=== PATIENT | male | born 1960 | race Caucasian/White ===

== ENCOUNTER 2018-01-28 15:19 | Inpatient (IN) | payer MEDICARE ==
--- NOTE | 2018-01-28 16:09 | CT ---
CT HEAD WITHOUT CONTRAST: Date: 01/28/18 Multiple axial tomograms obtained through the head without IV enhancement. INDICATION: Mental status change. FINDINGS: Ventricles have normal size and position. There is no evidence of intracranial mass or hemorrhage. No evidence of acute infarct. There is asymmetric opacification of the left mastoid air cells. There is also complete opacification of the left maxillary sinus. IMPRESSION: 1. No acute intracranial abnormality. 2. Opacification of left maxillary sinus. There is a more dense rounded area posteriorly measuring 1 .5 cm, which may represent a mucus retention cyst coexisting with diffuse mucus edema. 3. There is also diffuse mucosal edema opacifying the left mastoid and petrous air cells. POS: [facility]
--- NOTE | 2018-01-28 16:17 | RAD ---
2 VIEW CHEST: Date: 01/28/18 HISTORY: Dyspnea. No comparison. FINDINGS: Mild elevation of left hemidiaphragm. There is mild cardiomegaly. There is vascular engorgement and e vidence of mild congestion. The lateral view is suboptimal due to motion artifact. I cannot exclude s mall effusions. IMPRESSION: Suboptimal exam. Evidence of mild vascular congestion. POS: [facility]
[2018-01-28] MEDS ORDERED: Dexamethasone 4 mg/ml Vial ONE (16:18)
[2018-01-28] MEDS ORDERED: Magnesium Sulfate 2 GM/100 ML BAG ONE (16:18)
[2018-01-28] MEDS ORDERED: Albuterol Sulfate 2.5 mg/3 ml Neb ONE (16:35)
[2018-01-28 16:37] LABS: #Lymphocytes 0.9 thou/uL (1.20-3.40); #Monocytes 0.2 thou/uL (0.11-0.59); #Neutrophils 5.1 thou/uL (1.40-6.50); %Basophils 0.2 % (0.0-1.0); %Lymphocytes 14.7 % (21.0-51.0); %Monocytes 3.4 % (0.0-10.0); %Neutrophils 81.7 % (42.0-75.0); Hemoglobin 16.6 g/dL (14.0-18.0); Mean Corpuscular HGB CONC 32.6 g/dL (32.0-36.0); Mean Corpuscular Hemoglobin 26.2 pg (27.0-31.0); Mean Corpuscular Volume 80.4 fL (78.0-98.0); Mean Platelet Volume 9.6 fL (7.4-10.4); Platelet Count 97 thou/uL (130-400); RBC Distribution Width 15.3 % (11.5-14.5); Red Blood Cell (RBC) Count 6.35 mill/uL (4.70-6.10); White Blood Cell (WBC) Count 6.3 thou/uL (4.8-10.8)
[2018-01-28 16:48] LABS: ALT (SGPT) 57 U/L (8-55); AST (SGOT) 190 U/L (5-34); Albumin 3.9 g/dL (3.5-5.0); Alkaline Phosphatase 37 U/L (40-150); Anion Gap 16 mmol/L (10-20); BUN (Urea Nitrogen) 38 mg/dL (8.4-25.7); Bilirubin, Total 0.6 mg/dL (0.2-1.2); Calc. Creatinine Clearance 0 mL/min (70-130); Calcium 9.2 mg/dL (7.8-10.44); Carbon Dioxide 15 mmol/L (22-29); Chloride 100 mmol/L (98-107); Estimated GFR-MDRD 37; Globulin 3.5 g/dL (2.4-3.5); Glucose 159 mg/dL (70-105); Lipase 236 U/L (8-78); Potassium 3.4 mmol/L (3.5-5.1); Protein, Total 7.4 g/dL (6.0-8.3); Sodium 128 mmol/L (136-145)
[2018-01-28 16:50] LABS: Band 21 % (5-11); Lymphocytes 8 % (21-51); MDiff Complete? YES; Monocytes 2 % (0-10); Neutrophil 66 % (42-75); PLT Morphology Comment Appears Decreased; RBC Morphology Normal; Reactive Lymphocytes 3 % (0-10); Vacuoles SLIGHT
[2018-01-28 16:51] LABS: Troponin I 0.094 ng/mL (< 0.028)
[2018-01-28 16:57] LABS: CKMB 18.2 ng/mL (0-6.6)
[2018-01-28 17:01] LABS: CK (CPK) 7834 U/L (30-200)
[2018-01-28] MEDS ORDERED: Acetaminophen 500 MG TAB ONE (17:49)
[2018-01-28 19:53] LABS: Troponin I 0.104 ng/mL (< 0.028)
[2018-01-28] MEDS ORDERED: Sodium Chloride 0.9% 1,000 ML IV SCH (22:22)
[2018-01-28] MEDS ORDERED: Dextrose 5% in Water 1,000 ML IV PRN (22:48)
[2018-01-28] MEDS ORDERED: Ondansetron ODT 4 MG TAB PO PRN (22:48)
[2018-01-28] MEDS ORDERED: HYDROcodone/Acetaminophen 5/325 mg Tablet PO PRN ×2 (22:48)
[2018-01-28] MEDS ORDERED: Acetaminophen 325 MG TAB PO PRN (22:48)
[2018-01-28] MEDS ORDERED: Dextrose 50% Abboject 50 ML SYRINGE SLOW IVP PRN (22:48)
[2018-01-28] MEDS ORDERED: Ondansetron HCl/PF 4 MG/2 ML Vial IVP PRN (22:48)
[2018-01-28] MEDS ORDERED: Albuterol Sulfate 1.25 MG/3 ML NEB NEB PRN (22:54)
[2018-01-28] MEDS: Sodium Chloride 0.9% 1,000 ML IV SCH (23:49)
[2018-01-28] MEDS: Vancomycin HCl 1.5 GM in Sodium Chloride 0.9% 250 ML 300 ML IVPB SCH (23:49)
--- NOTE | 2018-01-29 00:41 | HP ---
DATE OF ADMISSION: 01/28/2018 PRIMARY CARE PHYSICIAN: Dr. Claire Cruz. TIME OF SERVICE: 2229. CHIEF COMPLAINT: Altered mental status, wheezing, and slurred speech. HISTORY OF PRESENT ILLNESS: Mr. Cheatham is a 57-year-old gentleman with history of mental retardation /autism, who is normally fairly independent. He was brought to the emergency department today for 1- day history of slurred speech starting yesterday morning. He speaks normally and is independent with his own activities of daily living. He told his caregiver, he went to come to the hospital today be cause someone was "trying to impersonate me." He woke up yesterday with some slurred speech, dizziness, and a slight fever. He remained fairly sta ble today and continued through today, so he was brought in for evaluation. In the ER, per their notes, he was a GCS of 0. He had normal vital signs on presentation. His lab e valuation showed acute kidney injury, he was tachycardic at 102, wheezing, and by the time he left th e ER, blood pressure dropped into the 80s-90 systolic. He did not have a sepsis activation. He got 2 liters of normal saline, Decadron, and nebulizer treatments in the ER. On arrival to the floor, blood pressure was noted to be in the 60s systolic. He received IV fluids a nd put in Trendelenburg. Repeat blood pressures over time have improved to the 90 systolic. Patient is somnolent, difficult to arouse. Here he awakes and looks at you, but does not really respond or talk or communicate. Patient being transferred to the [facility] for closer monitoring. PAST MEDICAL HISTORY: 1. Autism. 2. Diabetes mellitus, type 2, diet controlled. 3. Essential hypertension. 4. Anxiety. 5. Depression. PAST SURGICAL HISTORY: None. HOME MEDICATIONS: 1. 600 mg p.o. daily. 2. Atenolol 50 mg daily. 3. Gemfibrozil 600 mg daily. 4. Pravastatin 40 mg p.o. at bedtime. 5. Probiotic daily. ALLERGIES: NKDA. FAMILY HISTORY: Negative for clotting or bleeding disorder, no immune dysfunction. He has a caregiv er and guardian. SOCIAL HISTORY: Negative for habits x3. REVIEW OF SYSTEMS: Not obtainable due to somnolence. PHYSICAL EXAMINATION: VITAL SIGNS: Temperature on arrival to the ER 99.2, pulse 102, blood pressure 120/83, respiration ra te 24, satting 96% on room air. Current vitals on arrival to floor, temperature 97.4, pulse 73, bloo d pressure was 90/60, respiratory rate 22, satting 95% on room air. GENERAL: He is sleeping. He opens his eyes to verbal stimuli, but does not respond. He is snoring very loudly and with occasional short periods of apnea. HEENT: Normocephalic, atraumatic. Pupils equal, round, react to light bilaterally. Mucous membrane s are dry. He has no visible lesions or thrush. NECK: Supple. He has no lymphadenopathy, JVD, or thyromegaly. He has normal carotid upstroke. The re are no bruits. LUNGS: Clear. No wheezes, no rales or rhonchi. CARDIOVASCULAR: Normal cardiac and regular. Normal S1, S2. No S3 or S4. I do not appreciate murmu rs. ABDOMEN: Soft. It is nontender, nondistended. He has good bowel sounds. SKIN: Cool and clammy. His capillary refill is around 3-4 seconds. EXTREMITIES: He has got trace pedal edema. MUSCULOSKELETAL: Normal to inspection. Large joints appear normal. There are no evidence of inflam mation or palpable effusions. NEUROLOGIC: Not testable. Cranial nerves appear to be intact, but cannot follow commands currently. LABORATORY DATA: Sodium 128, potassium 3.4, chloride 100, bicarb 15, BUN 38, creatinine 1.89, glucos e 159, calcium 9.2. No lactate was done. Liver functions are within normal limits except for an ALT of 57. CBC showed a white count of 6.3, but he did have a 21% bandemia, 66% granulocytes, hemoglobin 16.6, h ematocrit 51.0, and platelet count is 97,000. CK-MB was elevated 18.2, total CK of 7834. Troponin I was 0.094 with a repeat of 0.104. BNP is normal at 24.2 and lipase was slightly elevated at 236. CT scan of the brain showed left maxillary sinusitis and some left mastoiditis, mastoid fluid, otherw ise negative. Chest x-ray showed mild vascular congestion. ASSESSMENT AND PLAN: 1. Metabolic encephalopathy. 2. Severe sepsis. Patient does have tachycardia, hypertension, bandemia, and acute kidney injury. We will check a lactic acid level. He only received 2 liters of fluid per his weight of 136 kilos, a lmost 4 liters of 36 mL per kilo. We will give another liter of fluid and continue IV fluids and inc reased at 125 mL per hour. 3. Diabetes mellitus, type 2, n.p.o. at present. Sliding scale Humalog. 4. Hypertension, meds on hold currently hypotensive. He has a poor blood pressure support with flui ds. 5. History of autism. 6. Rhabdomyolysis. CK of 7834. We will hydrate and recheck in the morning.
[2018-01-29] MEDS ORDERED: Tamsulosin HCl 0.4 MG CAP PO SCH (01:15)
[2018-01-29 03:11] LABS: Bilirubin Negative (Negative); Blood, Urine Large (Negative); Clarity CLOUDY (Clear); Glucose, Urine (Dipstick) 250 mg/dL (Negative); Leukocyte Negative (Negative); Nitrite Negative (Negative); Protein, Urine (Dipstick) 100 mg/dL (Neg-Trace); Specific Gravity, Urine 1.027 (1.002-1.036); Urobilinogen 0.2 mg/dL (0.2-1.0); pH, Urine 5.5 (5.0-9.0)
[2018-01-29 03:12] LABS: Bacteria/HPF None Seen HPF (None Seen)
[2018-01-29 03:18] LABS: Hyaline Casts/LPF 0-3 HYALINE CAST LPF (0-3 Hyaline); Other Casts/LPF None Seen LPF (0-3 Hyaline); Oval Fat Bodies/HPF None Seen HPF (None Seen); Pathc Cast-AUWi Flag 13.37 (0-2.49); Renal Epithelial 0-3 HPF (0-3); Sperm/HPF None Seen HPF (None Seen); Transitional Epithelial NONE SEEN HPF (0-3); Trichomonas/HPF None Seen HPF (None Seen); Yeast-All Forms None Seen HPF (None Seen)
[2018-01-29] MEDS ORDERED: Dexamethasone 4 mg/ml Vial SLOW IVP SCH (04:00)
[2018-01-29 04:01] LABS: Lactic Acid 1.9 mmol/L (0.5-2.2)
[2018-01-29 04:09] LABS: ALT (SGPT) 50 U/L (8-55); AST (SGOT) 149 U/L (5-34); Albumin 3.3 g/dL (3.5-5.0); Alkaline Phosphatase 30 U/L (40-150); Anion Gap 14 mmol/L (10-20); BUN (Urea Nitrogen) 32 mg/dL (8.4-25.7); Bilirubin, Total 0.4 mg/dL (0.2-1.2); Calc. Creatinine Clearance 122 mL/min (70-130); Calcium 7.8 mg/dL (7.8-10.44); Carbon Dioxide 16 mmol/L (22-29); Chloride 106 mmol/L (98-107); Estimated GFR-MDRD 59; Globulin 2.7 g/dL (2.4-3.5); Glucose 262 mg/dL (70-105); Potassium 3.7 mmol/L (3.5-5.1); Sodium 132 mmol/L (136-145)
[2018-01-29 04:43] LABS: Band 18 % (5-11); Hemoglobin 14.2 g/dL (14.0-18.0); Lymphocytes 10 % (21-51); MDiff Complete? YES; Mean Corpuscular HGB CONC 33.6 g/dL (32.0-36.0); Mean Corpuscular Hemoglobin 27.4 pg (27.0-31.0); Mean Corpuscular Volume 81.5 fL (78.0-98.0); Mean Platelet Volume 9.4 fL (7.4-10.4); Monocytes 1 % (0-10); Neutrophil 71 % (42-75); PLT Morphology Comment Appears Decreased; Platelet Count 79 thou/uL (130-400); RBC Distribution Width 15.2 % (11.5-14.5); Red Blood Cell (RBC) Count 5.19 mill/uL (4.70-6.10); White Blood Cell (WBC) Count 5.4 thou/uL (4.8-10.8)
[2018-01-29] MEDS: HumaLOG 300 UNITS/3 ML VIAL SC PRN ×4 (06:38→22:01)
[2018-01-29] MEDS ORDERED: Famotidine/PF 20 mg/2ml Vial SLOW IVP SCH (09:00)
[2018-01-29] MEDS: Sodium Chloride 0.9% 1,000 ML IV SCH ×2 (10:05→12:43)
[2018-01-29] MEDS: Cefepime 2 GM in Sodium Chloride 0.9% 100 ML IVPB SCH ×2 (10:06→21:59)
--- NOTE | 2018-01-29 13:40 | CON ---
DATE OF CONSULTATION: 01/29/2018 HISTORY OF PRESENT ILLNESS: Mr. Cheatham is a pleasant gentleman who has a learning disability and autism. He apparently lives fairly well independently. He does have some assistance. He presented with confusion. This apparently has cleared. I was consulted because of his presence in the Intermediate Care Unit. Apparently, he was hypotensive in the emergency department and after he was admitted. He has been volume resuscitated. PAST MEDICAL HISTORY: Remarkable for diabetes, hypertension, anxiety, depression, and autism. SOCIAL HISTORY: He is a nonsmoker, nondrinker. FAMILY HISTORY: Negative for clotting disorders. Negative for lung disease at an early age. Review of Systems: 10 point review of systems otherwise negative ALLERGIES: He has no reported drug allergies. PHYSICAL EXAMINATION: VITAL SIGNS: He is afebrile, heart rate 74, respiratory rate 20, oximetry is 100%, blood pressure 125/80. HEENT: Pupils are equal. Sclerae is anicteric. GENERAL: He answers questions quickly. He knew he was somewhere in [place]. HEAD AND NECK: Otherwise unremarkable. LUNGS: Clear. HEART: Regular rhythm. S1 and S2 are normal. ABDOMEN: Soft and nontender. EXTREMITIES: No clubbing, cyanosis, or edema. NEUROLOGIC: Grossly nonfocal. LABORATORY AND X-RAY FINDINGS: Chest x-ray showed no alveolar infiltrates. He has a poor inspiratory effort, likely because of his confusion. Head CT showed no structural abnormalities other than some findings suggestive of sinusitis and possible mastoiditis. White count 5.4, hemoglobin 14.2, platelets 79,000. He had 21% bands yesterday , he has 18 today. Cultures of the blood are negative so far. Sodium 132, potassium 3.7, chloride 106, bicarbonate 16, BUN 320, creatinine 1.27, glucose 262, AST was 149, ALT 50, alkaline phosphatase 30. CPK was 7, 834.. IMPRESSION: Intravascular volume depletion associated with myositis/ rhabdomyolysis. His statin probably should be held at this point. It is unclear whether or not that contributed to his elevated CPK, but it certainly could have. He is on broad antimicrobial therapy and nebulizer treatments. I do not see anything that suggests he has a pneumonia. At this point in time, the source of his left shift is unclear. He did have active urine sediment, but only 7-10 white cells. I will be happy to follow with the other physicians caring for him. This is a 50 minute consult, greater than 50% of the time was spent coordinating care. JEREMIE
--- NOTE | 2018-01-29 16:16 | PDOC.PN ---
- Subjective Encounter Start Date: 01/29/18 Encounter Start Time: 16:00 Subjective: f/u for suspected sepsis of unclear source on Cefepime/Vanc/Cipro. -: Feels better and pt's guardian states he is looking better. - Objective Resuscitation Status: Resuscitation Status FULL:Full Resuscitation MAR Reviewed: Yes Vital Signs & Weight: Vital Signs (12 hours) Temp Pulse Pulse Pulse Pulse Pulse Resp 01/29/18 15:22 97.7 F 85 28 H 01/29/18 14:38 76 18 01/29/18 13:59 83 92 95 90 01/29/18 11:21 98.2 F 74 21 H 01/29/18 08:08 97.2 F L 70 21 H 01/29/18 08:00 98.2 F 74 21 H 01/29/18 07:53 79 14 BP BP BP BP BP Pulse Ox Pulse Ox 01/29/18 15:22 112/68 100 01/29/18 14:38 99 01/29/18 13:59 138/70 120/67 117/72 136/71 100 01/29/18 11:21 125/80 100 01/29/18 08:08 134/83 100 01/29/18 08:00 100 01/29/18 07:53 Pulse Ox 01/29/18 15:22 01/29/18 14:38 01/29/18 13:59 99 01/29/18 11:21 01/29/18 08:08 01/29/18 08:00 01/29/18 07:53 Weight Weight 289 lb 6.4 oz I&O: 01/28/18 01/29/18 01/30/18 06:59 06:59 06:59 Intake Total 1050 Output Total 790 Balance 260 Result Diagrams: 01/29/18 03:11 01/29/18 03:11 Additional Labs: Accuchecks 01/29/18 01/29/18 01/29/18 10:40 05:39 01:08 POC Glucose 256 H 242 H 264 H 01/28/18 22:01 POC Glucose 229 H Microbiology 01/29/18 01:30 Urine Straight Catheter Urine Culture - Preliminary NO GROWTH AT 12 HOURS 01/28/18 16:22 Venous blood - Right Hand Blood Culture - Preliminary Specimen has been received and culture in progress. No Growth to date. 01/28/18 16:07 Venous blood - Left Hand Blood Culture - Preliminary Specimen has been received and culture in progress. No Growth to date. Laboratory Tests 01/28/18 01/28/18 01/28/18 16:22 16:22 23:07 Plt Count 97 L Neutrophils % 81.7 H Neutrophils % (Manual) Band Neuts % (Manual) 21 H Sodium 128 L Lactic Acid 2.9 H AST 190 H ALT 57 H 01/29/18 01/29/18 01/29/18 03:11 03:11 03:11 Plt Count Neutrophils % Neutrophils % (Manual) 71 Band Neuts % (Manual) 18 H Sodium Lactic Acid 1.9 AST 149 H ALT 50 Radiology Reviewed by me: Yes (CT brain - no acute intracranial process, left max sinus fluid) EKG Reviewed by me: Yes (Tele - SR) Phys Exam - Physical Examination Constitutional: NAD HEENT: PERRLA, sclera anicteric, oral pharynx no lesions Neck: no nodes, no JVD, supple, full ROM transmitted upper airway sounds Respiratory: no wheezing, no rales, no rhonchi, clear to auscultation bilateral S1, S2 Cardiovascular: RRR, no significant murmur, no rub, gallop Gastrointestinal: soft, non-tender, no distention, positive bowel sounds Musculoskeletal: no edema, pulses present Neurological: normal sensation, moves all 4 limbs Psychiatric: normal affect Skin: no rash, normal turgor, cap refill <2 seconds Deviation from normal: Stock cath in place with walt urine Dx/Plan (1) SIRS (systemic inflammatory response syndrome) Code(s): R65.10 - SIRS OF NON-INFECTIOUS ORIGIN W/O ACUTE ORGAN DYSFUNCTION Status: Acute Comment: Etiology unclear, await final Ucx/Blood cx results, continue IV abx another 24h then de-escalate (2) YELENA (acute kidney injury) Code(s): N17.9 - ACUTE KIDNEY FAILURE, UNSPECIFIED Status: Acute Comment: Improved, likely due to dehydration and #1, avoid nephrotoxic meds and limit contrast exposure, repeat creatinine in am (3) Thrombocytopenia Code(s): D69.6 - THROMBOCYTOPENIA, UNSPECIFIED Status: Acute Comment: Suspect due to #1, avoid anticoagulation, NSAIDs, serial monitoring (4) Hyponatremia Code(s): E87.1 - HYPO-OSMOLALITY AND HYPONATREMIA Status: Acute Comment: Pseudohyponatremia due to hyperglycemia, repeat Na+ level in am (5) Rhabdomyolysis Code(s): M62.82 - RHABDOMYOLYSIS Status: Acute Comment: Suspect non- traumatic, IVF's, repeat CPK level in am (6) Transaminitis Code(s): R74.0 - NONSPEC ELEV OF LEVELS OF TRANSAMNS & LACTIC ACID DEHYDRGNSE Status: Acute Comment: ? acute/subacute, check Hepatitis panel in am, repeat LFT's in am - Plan plan discussed w/ family, continue antibiotics, PT/OT, social service worker, respiratory therapy, out of bed/ambulate, DVT proph w/SCDs Stable overall -: Continue current IV abx another 24h then de-escalate -: Decrease IVF's 75ml/h -: PT for mobilization and functional assessment -: AM lab: CMP, CBC, Hep panel, CPK level * .
[2018-01-29] MEDS: Nystatin Powder 15 GM BOT TOP SCH (22:00)
[2018-01-29] MEDS: Famotidine/PF 20 mg/2ml Vial SLOW IVP SCH (22:00)
[2018-01-29] MEDS: Tamsulosin HCl 0.4 MG CAP PO SCH (22:01)
[2018-01-30] MEDS: Vancomycin HCl 1.5 GM in Sodium Chloride 0.9% 250 ML 300 ML IVPB SCH ×2 (02:21→23:18)
[2018-01-30] MEDS: Sodium Chloride 0.9% 1,000 ML IV SCH ×4 (02:21→18:19)
[2018-01-30 04:45] LABS: Hemoglobin 13.8 g/dL (14.0-18.0); Mean Corpuscular HGB CONC 33.9 g/dL (32.0-36.0); Mean Corpuscular Hemoglobin 27.5 pg (27.0-31.0); Mean Corpuscular Volume 81.1 fL (78.0-98.0); Mean Platelet Volume 9.2 fL (7.4-10.4); Platelet Count 86 thou/uL (130-400); RBC Distribution Width 15.2 % (11.5-14.5); Red Blood Cell (RBC) Count 5.03 mill/uL (4.70-6.10)
[2018-01-30 04:46] LABS: Band 20 % (5-11); Eosinophils 1 % (0-10); Lymphocytes 10 % (21-51); MDiff Complete? YES; Monocytes 2 % (0-10); Neutrophil 67 % (42-75); PLT Morphology Comment Appears Decreased
[2018-01-30 04:52] LABS: ALT (SGPT) 57 U/L (8-55); AST (SGOT) 127 U/L (5-34); Albumin 3.1 g/dL (3.5-5.0); Alkaline Phosphatase 34 U/L (40-150); Anion Gap 11 mmol/L (10-20); BUN (Urea Nitrogen) 28 mg/dL (8.4-25.7); Bilirubin, Total 0.4 mg/dL (0.2-1.2); CK (CPK) 3387 U/L (30-200); Calc. Creatinine Clearance 143 mL/min (70-130); Carbon Dioxide 19 mmol/L (22-29); Chloride 113 mmol/L (98-107); Estimated GFR-MDRD 71; Globulin 2.6 g/dL (2.4-3.5); Glucose 236 mg/dL (70-105); Potassium 3.3 mmol/L (3.5-5.1); Protein, Total 5.7 g/dL (6.0-8.3); Sodium 140 mmol/L (136-145)
[2018-01-30 05:07] LABS: HBCM Index 0.07 S/CO (0-0.79); HBSAg Index 0.22 S/CO (0-0.99); Hep A IgM AB Non-Reactive (NonReactive); Hep A IgM S/CO 0.11 S/CO (0-0.79); Hep B Surf Ag Non-Reactive S/CO (NonReactive); Hep C IgG Ab Non-Reactive (NonReactive); Hep C Index 0.14 S/CO (0-0.79); Hepatitis B Core IGM Abs Non-Reactive (NonReactive)
[2018-01-30] MEDS: Famotidine/PF 20 mg/2ml Vial SLOW IVP SCH ×2 (10:24→20:22)
[2018-01-30] MEDS: Cefepime 2 GM in Sodium Chloride 0.9% 100 ML IVPB SCH ×2 (10:24→20:22)
[2018-01-30] MEDS: Nystatin Powder 15 GM BOT TOP SCH ×3 (10:24→20:22)
[2018-01-30] MEDS ORDERED: ISOVUE-370 76%-LOCM 1 ML ONE (10:44)
--- NOTE | 2018-01-30 14:19 | PRG ---
DATE OF SERVICE: 01/30/2018 PHYSICAL EXAMINATION: VITAL SIGNS: Mr. Cheatham is afebrile, heart rate is 92, respiratory rates in the teens. Oximetry is 99 on 1 liter, blood pressure 126/72. LUNGS: Remarkable for some coarse equal breath sounds. He is in no distress. HEART: Regular rhythm. ABDOMEN: Soft. LABORATORY DATA: White count 6, hemoglobin 13.8, platelets 86,000. Sodium 140, potassium 3.3, chloride 113, bicarbonate 19, BUN 20, creatinine 1.08, AST is 127, ALT is 57, alkaline phosphatase is normal. CPK is down to 3387. IMPRESSION: 1. Asthmatic bronchitis. 2. ? Rhabdomyolysis. I doubt he has dermatomyositis or polymyositis or reaction to his statins, but this must be kept in m ind. I will continue to trend out his CPKs. He is probably stable to move out of the monitored bed to a medical bed.
--- NOTE | 2018-01-30 14:24 | PDOC.PN ---
- Subjective Encounter Start Date: 01/30/18 Encounter Start Time: 13:05 Subjective: f/u for SIRS on current Cipro/Vanc/Cefepime. Feels better overall. -: No focal infection identified. Appetite good. Still some coughing -: and receiving Duonebs. - Objective Resuscitation Status: Resuscitation Status FULL:Full Resuscitation MAR Reviewed: Yes Vital Signs & Weight: Vital Signs (12 hours) Temp Pulse Resp BP Pulse Ox 01/30/18 13:14 90 19 99 01/30/18 11:33 97.7 F 92 22 H 126/72 99 01/30/18 08:00 97.8 F 95 18 01/30/18 07:49 99 01/30/18 07:48 95 18 99 01/30/18 07:32 97.8 F 87 22 H 153/77 H 100 01/30/18 04:11 98.7 F 97 17 109/59 L 99 01/30/18 03:45 96 Weight Weight 289 lb 6.4 oz I&O: 01/29/18 01/30/18 01/31/18 06:59 06:59 06:59 Intake Total 1050 663 400 Output Total 790 1600 Balance 260 -937 400 Result Diagrams: 01/30/18 03:53 01/30/18 03:53 Additional Labs: Accuchecks 01/30/18 01/30/18 01/29/18 10:51 06:06 20:15 POC Glucose 171 H 178 H 270 H 01/29/18 16:20 POC Glucose 267 H Microbiology 01/29/18 01:30 Urine Straight Catheter Urine Culture - Final NO GROWTH AT 36 HOURS 01/29/18 01:30 Urine Straight Catheter Urine Culture - Preliminary NO GROWTH AT 12 HOURS 01/28/18 16:22 Venous blood - Right Hand Blood Culture - Preliminary Specimen has been received and culture in progress. No Growth to date. 01/28/18 16:22 Venous blood - Right Hand Blood Culture - Preliminary NO GROWTH AT 48 HOURS 01/28/18 16:07 Venous blood - Left Hand Blood Culture - Preliminary Specimen has been received and culture in progress. No Growth to date. 01/28/18 16:07 Venous blood - Left Hand Blood Culture - Preliminary NO GROWTH AT 48 HOURS Laboratory Tests 01/28/18 01/28/18 01/28/18 16:22 16:22 16:22 Plt Count 97 L Neutrophils % 81.7 H Neutrophils % (Manual) Band Neuts % (Manual) 21 H Sodium 128 L Potassium 3.4 L Carbon Dioxide 15 L Creatinine 1.89 H Lactic Acid AST 190 H ALT 57 H Creatine Kinase 7834 H B-Natriuretic Peptide 24.2 Hepatitis A IgM Ab Hep Bs Antigen Hep B Core IgM Ab Hepatitis C Antibody 01/28/18 01/29/18 01/29/18 23:07 03:11 03:11 Plt Count Neutrophils % Neutrophils % (Manual) 71 Band Neuts % (Manual) 18 H Sodium Potassium 3.7 Carbon Dioxide 16 L Creatinine 1.27 Lactic Acid 2.9 H AST 149 H ALT 50 Creatine Kinase B-Natriuretic Peptide Hepatitis A IgM Ab Hep Bs Antigen Hep B Core IgM Ab Hepatitis C Antibody 01/29/18 01/30/18 01/30/18 03:11 03:53 03:53 Plt Count Neutrophils % Neutrophils % (Manual) Band Neuts % (Manual) Sodium Potassium Carbon Dioxide Creatinine Lactic Acid 1.9 AST ALT Creatine Kinase 3387 H B-Natriuretic Peptide Hepatitis A IgM Ab Non-Reactive Hep Bs Antigen Non-Reactive Hep B Core IgM Ab Non-Reactive Hepatitis C Antibody Non-Reactive EKG Reviewed by me: Yes (Tele - Sinus in 90's) Phys Exam - Physical Examination Constitutional: NAD alert, responds to questions HEENT: PERRLA, sclera anicteric, oral pharynx no lesions Neck: no nodes, no JVD, supple, full ROM few coarse sounds and inspiratory wheezes, transmitted upper airway sounds S1, S2 Cardiovascular: RRR, no significant murmur, no rub, gallop obese, landmarks difficult to palpate Gastrointestinal: soft, no distention, positive bowel sounds Musculoskeletal: pulses present, edema present Neurological: normal sensation, moves all 4 limbs Psychiatric: normal affect Deviation from normal: chronic stasis changes Skin: normal turgor, cap refill <2 seconds Dx/Plan (1) SIRS (systemic inflammatory response syndrome) Code(s): R65.10 - SIRS OF NON-INFECTIOUS ORIGIN W/O ACUTE ORGAN DYSFUNCTION Status: Acute Comment: Etiology unclear, await final Ucx/Blood cx results, continue IV abx another 24h then de-escalate (2) YELENA (acute kidney injury) Code(s): N17.9 - ACUTE KIDNEY FAILURE, UNSPECIFIED Status: Acute Comment: Improved, likely due to dehydration and #1, avoid nephrotoxic meds and limit contrast exposure, repeat creatinine in am (3) Thrombocytopenia Code(s): D69.6 - THROMBOCYTOPENIA, UNSPECIFIED Status: Acute Comment: Suspect due to #1, avoid anticoagulation, NSAIDs, serial monitoring (4) Hyponatremia Code(s): E87.1 - HYPO-OSMOLALITY AND HYPONATREMIA Status: Acute Comment: Pseudohyponatremia due to hyperglycemia, repeat Na+ level in am (5) Rhabdomyolysis Code(s): M62.82 - RHABDOMYOLYSIS Status: Acute Comment: Suspect non- traumatic, IVF's, repeat CPK level in am, improved (6) Transaminitis Code(s): R74.0 - NONSPEC ELEV OF LEVELS OF TRANSAMNS & LACTIC ACID DEHYDRGNSE Status: Acute Comment: ? acute/subacute, check Hepatitis panel in am, repeat LFT's in am, check abd sono and spleen size - Plan continue antibiotics, PT/OT, healthcare social worker, respiratory therapy, DVT proph w/ SCDs Stable currently -: Continue Vancomycin and Cefepime -: D/C Cipro -: Decrease IVF's 50ml/h -: OOB/ambulate * Abd sono r/o cholestatic process and splenomegaly * AM lab: BMP, CBC, CPK * Transfer to medical floor
[2018-01-30] MEDS: Tamsulosin HCl 0.4 MG CAP PO SCH (20:22)
[2018-01-30] MEDS ORDERED: Furosemide 40 MG/4 ML VIAL ONE (22:20)
[2018-01-30] MEDS ORDERED: Furosemide 40 MG/4 ML VIAL SLOW IVP SCH (22:25)
--- NOTE | 2018-01-30 23:25 | RAD ---
CHEST ONE VIEW: 01/30/18 HISTORY: Shortness of breath. COMPARISON: Chest radiograph 01/28/18. FINDINGS: The exam is limited to rightward patient rotation. There is a right perihilar air space opacity as we ll as a left hilar air space opacity. Mild vascular congestion . No pneumothorax. IMPRESSION: Abnormal bilateral hilar opacities with possible right hilar mass. Nonemergent CT of the chest recommended. POS: [facility]
[2018-01-31 01:35] LABS: pH, Arterial 7.53 (7.35-7.45)
[2018-01-31 01:37] LABS: Actual Bicarbonate (HCO3a) 21.1 mEq/L (22-28); CO2 Tension 25.7 mmHg (35.0-45.0)
[2018-01-31 01:38] LABS: Hemoglobin (Hb) 14.2 g/dL (14.0-18.0)
[2018-01-31 01:39] LABS: ALV-art Gradient 96.995 (0-20); Calcium, Ionized 1.1 mmol/L (1.12-1.30); Puncture Site RRA
[2018-01-31 01:56] LABS: Lactic Acid 1.7 mmol/L (0.5-2.2)
[2018-01-31 02:05] LABS: Band 6 % (5-11); Hemoglobin 14.1 g/dL (14.0-18.0); Lymphocytes 29 % (21-51); MDiff Complete? YES; Mean Corpuscular HGB CONC 32.8 g/dL (32.0-36.0); Mean Corpuscular Hemoglobin 26.6 pg (27.0-31.0); Mean Corpuscular Volume 81.3 fL (78.0-98.0); Mean Platelet Volume 9.6 fL (7.4-10.4); Monocytes 3 % (0-10); Neutrophil 62 % (42-75); PLT Morphology Comment Appears Decreased; Platelet Count 90 thou/uL (130-400); RBC Distribution Width 15.3 % (11.5-14.5); Red Blood Cell (RBC) Count 5.28 mill/uL (4.70-6.10); White Blood Cell (WBC) Count 5.9 thou/uL (4.8-10.8)
[2018-01-31 02:07] LABS: Anion Gap 15 mmol/L (10-20); BUN (Urea Nitrogen) 22 mg/dL (8.4-25.7); CK (CPK) 2191 U/L (30-200); Calc. Creatinine Clearance 153 mL/min (70-130); Carbon Dioxide 21 mmol/L (22-29); Chloride 107 mmol/L (98-107); Estimated GFR-MDRD 77; Glucose 174 mg/dL (70-105); Sodium 140 mmol/L (136-145)
[2018-01-31 02:13] LABS: Potassium 2.9 mmol/L (3.5-5.1)
[2018-01-31] MEDS ORDERED: Potassium Phosphate 9 MMOL in Sodium Chloride 0.9% 100 ML IVPB PRN (03:02)
[2018-01-31] MEDS ORDERED: Magnesium Oxide 400 MG TAB PO PRN ×2 (03:02)
[2018-01-31] MEDS ORDERED: Magnesium 2 GM/NS 0.9% 100 ML 2 GM in Premix Bag 1 BAG IVPB PRN (03:02)
[2018-01-31] MEDS ORDERED: Potassium Chloride 40 MEQ in Premix Bag 1 BAG IVPB PRN (03:02)
[2018-01-31] MEDS ORDERED: Potassium Chloride 20 MEQ TAB PO PRN (03:02)
[2018-01-31] MEDS ORDERED: Potassium Chloride 40 MEQ in Sodium Chloride 0.9% 250 ML 250 ML IVPB PRN (03:02)
[2018-01-31] MEDS ORDERED: CCU ELECTROLYTE REPLACEMENT PROTOCOL FS PRN (03:02)
[2018-01-31] MEDS ORDERED: Potassium Phosphate 15 MMOL in Sodium Chloride 0.9% 250 ML 250 ML IV PRN (03:02)
[2018-01-31] MEDS ORDERED: Potassium Phosphate 12 MMOL in Sodium Chloride 0.9% 250 ML 250 ML IV PRN (03:02)
--- NOTE | 2018-01-31 06:45 | PDOC.EVN ---
Event Note - Event Note Event Note: pt went into respiratory distress overnight, with increased respiratory rate, significant b/l wheezing, cxr/ctpa done pt braxton right side consolidation, and possibly a component of alveolar edema , improved after lasix 40mg, but still remained in distress, placed on bipap in imc, with significant improvement, already on appropriate abt's coverage , lactate was normal,
[2018-01-31 08:27] LABS: Anion Gap 12 mmol/L (10-20); BUN (Urea Nitrogen) 18 mg/dL (8.4-25.7); Calc. Creatinine Clearance 161 mL/min (70-130); Carbon Dioxide 23 mmol/L (22-29); Chloride 109 mmol/L (98-107); Estimated GFR-MDRD 83; Glucose 179 mg/dL (70-105); Potassium 3.2 mmol/L (3.5-5.1); Sodium 141 mmol/L (136-145)
--- NOTE | 2018-01-31 08:44 | ULT ---
ULTRASOUND ABDOMEN: Date: 01/31/18 HISTORY: Elevated LFTs. Sepsis. Acute renal insufficiency. Exam is limited by patient's body habitus and mental status. Patient does not cooperate with exam. FINDINGS: The pancreas, right kidney, common bile duct, aorta, and main portal vein are not visualized. The liver demonstrates coarse and increased echogenicity without focal mass or intrahepatic ductal di latation. The liver is enlarged, measuring 21.8 cm. Spleen is normal, measuring 11.3 cm. The gallblad dipak is poorly visualized. No obvious shadowing calculi or gallbladder wall thickening are seen. The l eft kidney measures 13.0 cm in length and is grossly unremarkable. The visualized portions of the IVC and aorta (distal) are unremarkable. No free fluid is seen. IMPRESSION: 1. Limited exam. 2. Hepatic steatosis and hepatomegaly. POS: [facility]
--- NOTE | 2018-01-31 09:13 | CT ---
PRELIMINARY REPORT/[facility]/EMERGENTY AFTER-HOURS PROCEDURE CT Angiography Chest With Intravenous Contrast CLINICAL HISTORY: 57 years old, male; Signs and symptoms; Dyspnea and shortness of breath; Patient HX: Eval for possibl e pe; Pt C/O SOB. Denies chest pain. ; Additional info: Pt had difficulty following breathing instruc tions TECHNIQUE: Axial computed tomographic angiography images of the chest with intravenous contrast using pulmonary embolism protocol. MIP reconstructed images were created and reviewed. Coronal reformatted images were created and reviewed. COMPARISON: No relevant prior studies available. FINDINGS: Pulmonary arteries: There is respiratory motion artifact which limits evaluation of the peripheral pu lmonary arteries. No large central pulmonary embolus is demonstrated. Aorta: No acute findings. No thoracic aortic aneurysm. Lungs: There is consolidation at the RIGHT lung base compatible with pneumonia in the appropriate cli nical setting. Pleural space: Normal. No significant effusion. No pneumothorax. Heart: Normal. No cardiomegaly. No significant pericardial effusion. No evidence of RV dysfunction. Bones/joints: No acute fracture. No dislocation. Soft tissues: Normal. Lymph nodes: Normal. No enlarged lymph nodes. IMPRESSION: 1. There is respiratory motion artifact which limits evaluation of the peripheral pulmonary arteries. No large central pulmonary embolus is demonstrated. 2. There is consolidation at the RIGHT lung base compatible with pneumonia in the appropriate clinica l setting. Thank you for allowing us to participate in the care of your patient. Dictated and Authenticated by: Eugenio Angel MD 01/31/2018 1:05 AM Central Time ([place] & [place]) FINAL REPORT CT PULMONARY ANGIOGRAM WITH IV CONTRAST AND 3D POSTPROCESSING: Date: 01/30/18 FINDINGS/IMPRESSION: I agree with the preliminary report given by [facility]. Additionally, there is a focal are of consolidatio n in the left suprahilar lung. POS: [facility]
[2018-01-31] MEDS: Cefepime 2 GM in Sodium Chloride 0.9% 100 ML IVPB SCH ×2 (09:28→22:29)
[2018-01-31] MEDS: Nystatin Powder 15 GM BOT TOP SCH ×3 (09:29→22:55)
[2018-01-31] MEDS: Famotidine/PF 20 mg/2ml Vial SLOW IVP SCH (09:29)
--- NOTE | 2018-01-31 14:51 | PRG ---
DATE OF SERVICE: 01/31/2018 SERVICE: Pulmonary Medicine. INTERVAL HISTORY: Last night, the patient got worked up a little bit. His ABG looked a little touch abnormal. He was subsequently brought back down to the [facility] and initiated on BiPAP for his underlying respiratory alkalosis. At that time, he was a touch hypoxemic. He was on nasal cannula 28% FiO2. Currently, he denies any chest discomfort. He remains in a confused state with periods of agitation. OBJECTIVE: VITAL SIGNS: Afebrile, pulse 110, blood pressure 175/93, respirations 28, saturation 97% on 3 liters nasal cannula. GENERAL: The patient is awake, alert, no apparent distress. LUNGS: Decent air entry. There is a slightly prolonged expiratory phase with a touch of wheezing. There are dependent crackles present. HEART: Normal rate, regular. ABDOMEN: Soft, nontender, nondistended. Bowel sounds are positive. MUSCULOSKELETAL: No cyanosis or clubbing. There is trace pitting in the bilateral lower extremities. NEUROLOGIC: Grossly nonfocal. LABORATORY DATA: WBC 5.9, hemoglobin 14.1, platelets 90,000. Band count has improved to 6%. A pH 7.53, pCO2 25, pO2 68. Creatinine 0.94. Potassium 3.2. Basic metabolic profile and magnesium are otherwise unremarkable. Blood cultures x2 and urine culture are both negative. IMAGIN. Abdominal ultrasound demonstrates hepatic steatosis and hepatomegaly, but otherwise no acute issues. 2. CTA of the chest demonstrates right lower lobe pneumonia with a very small layering effusion. There is no evidence of a pulmonary embolism there. ASSESSMENT: 1. Acute hypoxic respiratory failure. 2. Community acquired pneumonia. 3. Respiratory alkalosis, likely secondary to hypoxemia. 4. Acute bronchitis. 5. Acute delirium. DISCUSSION AND PLAN: We will provide the patient with a dose of potassium. I will back off on his steroids as this may be driving some of his acute confusional state. We will provide him with as much oxygen as he needs. I will give him a dose of Lasix as there is a little bit of evidence of volume overload. For the Community-acquired pneumonia, we will continue on empiric antibiotic coverage. Pulmonary Critical Care will continue to follow along while the patient remains in this location, but from my perspective, he is stable for transition back to the medical unit. JEREMIE
[2018-01-31] MEDS ORDERED: Potassium Chloride 20 MEQ TAB PO SCH ×2 (15:15→19:00)
[2018-01-31] MEDS ORDERED: Azithromycin 500 MG in Sodium Chloride 0.9% 250 ML 250 ML IVPB SCH (15:30)
[2018-01-31] MEDS: Atenolol 50 MG TAB PO SCH (15:41)
--- NOTE | 2018-01-31 15:58 | PDOC.PN ---
- Subjective Encounter Start Date: 01/31/18 Encounter Start Time: 10:25 Subjective: f/u for SIRS suspected secondary PNA. Acute resp distress last pm -: requiring intermittent BiPAP. Currently feels ok and without complaints - Objective Resuscitation Status: Resuscitation Status FULL:Full Resuscitation MAR Reviewed: Yes Vital Signs & Weight: Vital Signs (12 hours) Temp Pulse Pulse Resp BP BP Pulse Ox 01/31/18 15:41 109 H 01/31/18 15:18 97.0 F L 109 H 27 H 125/75 94 L 01/31/18 11:50 98.0 F 122 H 29 H 175/96 H 98 01/31/18 10:46 127 H 175/93 H 01/31/18 07:56 97.4 F L 110 H 28 H 97 01/31/18 07:34 97.4 F L 110 H 28 H 109/86 97 01/31/18 06:32 122 H 30 H 199 H 01/31/18 06:30 128 H 32 H 100 01/31/18 04:00 98.8 F 107 H 28 H 157/98 H 100 Pulse Ox 01/31/18 15:41 01/31/18 15:18 01/31/18 11:50 01/31/18 10:46 88 L 01/31/18 07:56 01/31/18 07:34 01/31/18 06:32 01/31/18 06:30 01/31/18 04:00 Weight Weight 282 lb 4 oz I&O: 01/30/18 01/31/18 02/01/18 06:59 06:59 06:59 Intake Total 663 1650 Output Total 1600 0850 850 [employer]937 -2050 -850 Result Diagrams: 01/31/18 01:32 01/31/18 07:42 Additional Labs: Accuchecks 01/31/18 01/31/18 01/30/18 10:50 05:33 20:16 POC Glucose 227 H 139 H 148 H 01/30/18 17:10 POC Glucose 128 H Microbiology 01/29/18 01:30 Urine Straight Catheter Urine Culture - Final NO GROWTH AT 36 HOURS 01/29/18 01:30 Urine Straight Catheter Urine Culture - Preliminary NO GROWTH AT 12 HOURS 01/28/18 16:22 Venous blood - Right Hand Blood Culture - Preliminary Specimen has been received and culture in progress. No Growth to date. 01/28/18 16:22 Venous blood - Right Hand Blood Culture - Preliminary NO GROWTH AT 48 HOURS 01/28/18 16:07 Venous blood - Left Hand Blood Culture - Preliminary Specimen has been received and culture in progress. No Growth to date. 01/28/18 16:07 Venous blood - Left Hand Blood Culture - Preliminary NO GROWTH AT 48 HOURS Laboratory Tests 01/28/18 01/28/18 01/28/18 16:22 16:22 16:22 Plt Count 97 L Neutrophils % 81.7 H Neutrophils % (Manual) Band Neuts % (Manual) 21 H Sodium 128 L Potassium 3.4 L Carbon Dioxide 15 L Creatinine 1.89 H Lactic Acid Magnesium AST 190 H ALT 57 H Creatine Kinase 7834 H B-Natriuretic Peptide 24.2 Hepatitis A IgM Ab Hep Bs Antigen Hep B Core IgM Ab Hepatitis C Antibody 01/28/18 01/29/18 01/29/18 23:07 03:11 03:11 Plt Count Neutrophils % Neutrophils % (Manual) 71 Band Neuts % (Manual) 18 H Sodium Potassium 3.7 Carbon Dioxide 16 L Creatinine 1.27 Lactic Acid 2.9 H Magnesium AST 149 H ALT 50 Creatine Kinase B-Natriuretic Peptide Hepatitis A IgM Ab Hep Bs Antigen Hep B Core IgM Ab Hepatitis C Antibody 01/29/18 01/30/18 01/30/18 03:11 03:53 03:53 Plt Count Neutrophils % Neutrophils % (Manual) Band Neuts % (Manual) 20 H Sodium Potassium Carbon Dioxide Creatinine Lactic Acid 1.9 Magnesium AST ALT Creatine Kinase 3387 H B-Natriuretic Peptide Hepatitis A IgM Ab Hep Bs Antigen Hep B Core IgM Ab Hepatitis C Antibody 01/30/18 01/31/18 01/31/18 03:53 01:32 01:32 Plt Count Neutrophils % Neutrophils % (Manual) Band Neuts % (Manual) 6 Sodium Potassium 2.9 L* Carbon Dioxide Creatinine Lactic Acid Magnesium AST ALT Creatine Kinase 2191 H B-Natriuretic Peptide Hepatitis A IgM Ab Non-Reactive Hep Bs Antigen Non-Reactive Hep B Core IgM Ab Non-Reactive Hepatitis C Antibody Non-Reactive 01/31/18 07:42 Plt Count Neutrophils % Neutrophils % (Manual) Band Neuts % (Manual) Sodium Potassium Carbon Dioxide Creatinine Lactic Acid Magnesium 2.0 AST ALT Creatine Kinase B-Natriuretic Peptide Hepatitis A IgM Ab Hep Bs Antigen Hep B Core IgM Ab Hepatitis C Antibody Radiology Reviewed by me: Yes (CTA chest - negative except RLL infiltrate; Abd sono - fatty liver) Phys Exam - Physical Examination Constitutional: NAD HEENT: PERRLA, sclera anicteric, oral pharynx no lesions Neck: no nodes, no JVD, supple, full ROM coarse sounds RLL, exp wheezes tachycardic S1, S2 Cardiovascular: no significant murmur, no rub, gallop Gastrointestinal: soft, non-tender, no distention, positive bowel sounds Musculoskeletal: no edema, pulses present Neurological: normal sensation, moves all 4 limbs Psychiatric: normal affect Skin: no rash, normal turgor, cap refill <2 seconds Dx/Plan (1) Community acquired bacterial pneumonia Code(s): J15.9 - UNSPECIFIED BACTERIAL PNEUMONIA Status: Acute Comment: RLL infiltrate, continue Zithromax/Cefepime and Vancomycin, O2 via NC prn, Duonebs (2) SIRS (systemic inflammatory response syndrome) Code(s): R65.10 - SIRS OF NON-INFECTIOUS ORIGIN W/O ACUTE ORGAN DYSFUNCTION Status: Acute Comment: Suspect due to RLL infiltrate/PNA, continue current abx and monitor clinical response (3) Acute respiratory failure with hypoxia Code(s): J96.01 - ACUTE RESPIRATORY FAILURE WITH HYPOXIA Status: Acute Comment: Suspect due to PNA, O2 via NC continuously, Duonebs, (4) YELENA (acute kidney injury) Code(s): N17.9 - ACUTE KIDNEY FAILURE, UNSPECIFIED Status: Acute Comment: Improved, likely due to dehydration and #1, avoid nephrotoxic meds and limit contrast exposure, repeat creatinine in am (5) Thrombocytopenia Code(s): D69.6 - THROMBOCYTOPENIA, UNSPECIFIED Status: Acute Comment: Suspect due to #1, avoid anticoagulation, NSAIDs, serial monitoring (6) Hyponatremia Code(s): E87.1 - HYPO-OSMOLALITY AND HYPONATREMIA Status: Acute Comment: Pseudohyponatremia due to hyperglycemia, repeat Na+ level in am (7) Rhabdomyolysis Code(s): M62.82 - RHABDOMYOLYSIS Status: Acute Comment: Suspect non- traumatic, IVF's, repeat CPK level in am, improved (8) Transaminitis Code(s): R74.0 - NONSPEC ELEV OF LEVELS OF TRANSAMNS & LACTIC ACID DEHYDRGNSE Status: Acute Comment: Due to hepatic steatosis - Plan continue antibiotics, PT/OT, social media content manager, respiratory therapy, out of bed/ ambulate, DVT proph w/SCDs Stable currently -: Continue Zithromax/Cefepime/Vancomycin -: Continue O2 via NC weaning as tolerated -: Lasix 40mg IV q12h -: AM lab: BMP, CPK * .
[2018-01-31] MEDS ORDERED: Azithromycin 250 MG TAB PO SCH (18:00)
[2018-01-31] MEDS: Tamsulosin HCl 0.4 MG CAP PO SCH (20:00)
[2018-01-31] MEDS ORDERED: Famotidine 20 MG TAB PO SCH (21:00)
[2018-02-01 05:05] LABS: Anion Gap 11 mmol/L (10-20); BUN (Urea Nitrogen) 21 mg/dL (8.4-25.7); CK (CPK) 1487 U/L (30-200); Calc. Creatinine Clearance 207 mL/min (70-130); Calcium 8.3 mg/dL (7.8-10.44); Carbon Dioxide 26 mmol/L (22-29); Chloride 111 mmol/L (98-107); Estimated GFR-MDRD Greater than 90; Glucose 108 mg/dL (70-105); Potassium 3.7 mmol/L (3.5-5.1); Sodium 144 mmol/L (136-145)
[2018-02-01] MEDS ORDERED: Furosemide 40 MG/4 ML VIAL SLOW IVP SCH (06:00)
[2018-02-01] MEDS ORDERED: Atenolol 50 MG TAB PO SCH (09:00)
--- NOTE | 2018-02-01 09:03 | PRG ---
DATE OF SERVICE: 02/01/2018 The patient is lying in bed, does not appear to be in any distress. He says he did not require BiPAP last night. PHYSICAL EXAMINATION: VITAL SIGNS: Temperature 97.2, pulse 85, respirations 22, O2 sat 92% on room air, blood pressure 134 /90. HEENT: Unremarkable. NECK: No JVD. LUNGS: Fairly clear without wheezing. CARDIAC: S1 and S2 regular. ABDOMEN: Soft, obese, nontender. EXTREMITIES: No edema. LABORATORY DATA: Sodium 144, potassium 3.7, chloride 111, CO2 26, BUN 21, creatinine 0.7, glucose 10 8. CPK 1497. ASSESSMENT: 1. Status post acute hypoxic respiratory failure. 2. Status post delirium. 3. Rhabdomyolysis, which seems to be improving. PLAN: The patient can be transferred back to the medical floor. Continue the antibiotics and monito ring his labs closely.
[2018-02-01] MEDS: Azithromycin 250 MG TAB PO SCH (09:23)
[2018-02-01] MEDS: Cefepime 2 GM in Sodium Chloride 0.9% 100 ML IVPB SCH ×2 (09:23→19:38)
[2018-02-01] MEDS: Nystatin Powder 15 GM BOT TOP SCH ×3 (09:24→19:39)
[2018-02-01] MEDS: Atenolol 50 MG TAB PO SCH (14:23)
--- NOTE | 2018-02-01 17:47 | PDOC.PN ---
- Subjective Encounter Start Date: 02/01/18 Encounter Start Time: 14:45 Subjective: f/u for SIRS from PNA. Overall feeling good. No O2 requirement -: currently. Less cough. Appetite good. - Objective Resuscitation Status: Resuscitation Status FULL:Full Resuscitation MAR Reviewed: Yes Vital Signs & Weight: Vital Signs (12 hours) Temp Pulse Resp BP BP Pulse Ox 02/01/18 16:12 98.2 F 84 22 H 145/80 H 97 02/01/18 14:23 95 157/103 H 02/01/18 14:00 85 16 02/01/18 11:00 98.0 F 85 20 95 02/01/18 10:38 98.0 F 85 20 148/108 H 95 02/01/18 08:09 97.2 F L 85 22 H 92 L 02/01/18 07:32 97.2 F L 85 22 H 134/90 92 L 02/01/18 07:18 84 18 Weight Weight 281 lb 2 oz I&O: 01/31/18 02/01/18 02/02/18 06:59 06:59 06:59 Intake Total 1650 360 Output Total 3700 1200 Balance -2049 Result Diagrams: 01/31/18 01:32 02/01/18 03:58 Additional Labs: Accuchecks 02/01/18 02/01/18 02/01/18 15:47 11:35 10:30 POC Glucose 141 H 109 156 H 01/31/18 22:59 POC Glucose 110 Microbiology 01/29/18 01:30 Urine Straight Catheter Urine Culture - Final NO GROWTH AT 36 HOURS 01/29/18 01:30 Urine Straight Catheter Urine Culture - Preliminary NO GROWTH AT 12 HOURS 01/28/18 16:22 Venous blood - Right Hand Blood Culture - Preliminary Specimen has been received and culture in progress. No Growth to date. 01/28/18 16:22 Venous blood - Right Hand Blood Culture - Preliminary NO GROWTH AT 48 HOURS 01/28/18 16:07 Venous blood - Left Hand Blood Culture - Preliminary Specimen has been received and culture in progress. No Growth to date. 01/28/18 16:07 Venous blood - Left Hand Blood Culture - Preliminary NO GROWTH AT 48 HOURS Laboratory Tests 01/28/18 01/28/18 01/28/18 16:22 16:22 16:22 Plt Count 97 L Neutrophils % 81.7 H Neutrophils % (Manual) Band Neuts % (Manual) 21 H Sodium 128 L Potassium 3.4 L Carbon Dioxide 15 L Creatinine 1.89 H Lactic Acid Magnesium AST 190 H ALT 57 H Creatine Kinase 7834 H B-Natriuretic Peptide 24.2 Hepatitis A IgM Ab Hep Bs Antigen Hep B Core IgM Ab Hepatitis C Antibody 01/28/18 01/29/18 01/29/18 23:07 03:11 03:11 Plt Count Neutrophils % Neutrophils % (Manual) 71 Band Neuts % (Manual) 18 H Sodium Potassium 3.7 Carbon Dioxide 16 L Creatinine 1.27 Lactic Acid 2.9 H Magnesium AST 149 H ALT 50 Creatine Kinase B-Natriuretic Peptide Hepatitis A IgM Ab Hep Bs Antigen Hep B Core IgM Ab Hepatitis C Antibody 01/29/18 01/30/18 01/30/18 03:11 03:53 03:53 Plt Count Neutrophils % Neutrophils % (Manual) Band Neuts % (Manual) 20 H Sodium Potassium Carbon Dioxide Creatinine Lactic Acid 1.9 Magnesium AST ALT Creatine Kinase 3387 H B-Natriuretic Peptide Hepatitis A IgM Ab Hep Bs Antigen Hep B Core IgM Ab Hepatitis C Antibody 01/30/18 01/31/18 01/31/18 03:53 01:32 01:32 Plt Count Neutrophils % Neutrophils % (Manual) Band Neuts % (Manual) 6 Sodium Potassium 2.9 L* Carbon Dioxide Creatinine Lactic Acid Magnesium AST ALT Creatine Kinase 2191 H B-Natriuretic Peptide Hepatitis A IgM Ab Non-Reactive Hep Bs Antigen Non-Reactive Hep B Core IgM Ab Non-Reactive Hepatitis C Antibody Non-Reactive 01/31/18 02/01/18 07:42 03:58 Plt Count Neutrophils % Neutrophils % (Manual) Band Neuts % (Manual) Sodium Potassium Carbon Dioxide Creatinine Lactic Acid Magnesium 2.0 AST ALT Creatine Kinase 1487 H B-Natriuretic Peptide Hepatitis A IgM Ab Hep Bs Antigen Hep B Core IgM Ab Hepatitis C Antibody Phys Exam - Physical Examination Constitutional: NAD HEENT: PERRLA, sclera anicteric, oral pharynx no lesions Neck: no nodes, no JVD, supple, full ROM few scattered coarse sounds Respiratory: no wheezing S1,S2 Cardiovascular: RRR, no significant murmur, no rub, gallop Gastrointestinal: soft, non-tender, no distention, positive bowel sounds Musculoskeletal: no edema, pulses present Neurological: normal sensation, moves all 4 limbs Psychiatric: normal affect Skin: no rash, normal turgor, cap refill <2 seconds Dx/Plan (1) Community acquired bacterial pneumonia Code(s): J15.9 - UNSPECIFIED BACTERIAL PNEUMONIA Status: Acute Comment: RLL infiltrate, continue Zithromax/Cefepime and Vancomycin, O2 via NC prn, Duonebs, convert to po abx in am (2) SIRS (systemic inflammatory response syndrome) Code(s): R65.10 - SIRS OF NON-INFECTIOUS ORIGIN W/O ACUTE ORGAN DYSFUNCTION Status: Acute Comment: Suspect due to RLL infiltrate/PNA, continue current abx and monitor clinical response (3) Acute respiratory failure with hypoxia Code(s): J96.01 - ACUTE RESPIRATORY FAILURE WITH HYPOXIA Status: Acute Comment: Suspect due to PNA, O2 via NC continuously, Duonebs (4) YELENA (acute kidney injury) Code(s): N17.9 - ACUTE KIDNEY FAILURE, UNSPECIFIED Status: Acute Comment: Improved, likely due to dehydration and #1, avoid nephrotoxic meds and limit contrast exposure, repeat creatinine in am (5) Thrombocytopenia Code(s): D69.6 - THROMBOCYTOPENIA, UNSPECIFIED Status: Acute Comment: Suspect due to #1, avoid anticoagulation, NSAIDs, serial monitoring (6) Hyponatremia Code(s): E87.1 - HYPO-OSMOLALITY AND HYPONATREMIA Status: Acute Comment: Pseudohyponatremia due to hyperglycemia, repeat Na+ level in am (7) Rhabdomyolysis Code(s): M62.82 - RHABDOMYOLYSIS Status: Acute Comment: Suspect non- traumatic, IVF's, repeat CPK level in am, improved (8) Transaminitis Code(s): R74.0 - NONSPEC ELEV OF LEVELS OF TRANSAMNS & LACTIC ACID DEHYDRGNSE Status: Acute Comment: Due to hepatic steatosis - Plan continue antibiotics, PT/OT, director social, speech therapy, respiratory therapy, DVT proph w/SCDs Stable overall -: Continue Cefepime and Zithromax -: Convert to po abx in am -: Duonebs q4h prn -: Likely home in 24h * .
[2018-02-01] MEDS: Tamsulosin HCl 0.4 MG CAP PO SCH (19:38)
[2018-02-02] MEDS: Cefepime 2 GM in Sodium Chloride 0.9% 100 ML IVPB SCH (08:04)
[2018-02-02] MEDS: Azithromycin 250 MG TAB PO SCH (08:04)
[2018-02-02] MEDS: Nystatin Powder 15 GM BOT TOP SCH (08:11)
[2018-02-02] MEDS: Atenolol 50 MG TAB PO SCH (11:35)
[2018-02-02 13:00] VITALS: BP 119/73; TEMP 98.6
--- NOTE | 2018-02-02 16:13 | PRG ---
DATE OF SERVICE: 02/02/2018 SUBJECTIVE: He had no complaints. He was evaluated by me earlier. He is in no distress. He said h buddy wanted to go home. PHYSICAL EXAMINATION: LUNGS: Clear. HEART: Regular rhythm. S1 and S2 are normal. ABDOMEN: Soft and nontender. EXTREMITIES: Without edema or asymmetry. NEUROLOGIC: grossly nonfocal. IMPRESSION: 1. Bronchitis that developed into pneumonia. 2. Preexisting learning disability with autism. PLAN: Back to his supportive care environment. He needs a chest radiograph in 6-8 weeks to document clearing of his pulmonary abnormalities. He should be sent home on antimicrobial therapy.
--- NOTE | 2018-02-02 22:52 | DIS ---
DATE OF ADMISSION: 01/28/2018 DATE OF DISCHARGE: 02/02/2018 DISCHARGE DIAGNOSES: 1. Community-acquired bacterial pneumonia of the right lower lobe suspected gram positive cocci. 2. Systemic inflammatory response syndrome secondary to #1. 3. Acute hypoxic respiratory failure, resolved. 4. Acute kidney injury, resolved. 5. Thrombocytopenia, chronic. 6. Hyponatremia secondary to pseudohyponatremia, resolved. 7. Rhabdomyolysis, nontraumatic, resolving. 8. Transaminitis secondary to hepatic steatosis. CONSULTATIONS: Dr. Martin, Dr. Dinh, and Dr. Marc with Pulmonology Service. PERTINENT LABORATORY AND X-RAY FINDINGS: Sodium ranged between 128-144, creatinine ranged between 0. 73-1.89, estimated GFR ranged between 37 to greater than 90, calcium 8.0-8.3, magnesium 2.0, AST rang ed between 127-190, ALT ranged between 50-57, total CK ranged between 1487 to 7834. BNP 24.2, lipase 236. CBC showed a white blood cell count ranged between 5.4-6.3, platelet count ranged between 79-9 7. Hepatitis panel dated 01/30/2018, negative for A, B and C. Blood cultures x2 from 01/28/2018 kaila wed no growth at 48 hours. Urine culture dated 01/29/2018 showed no growth at 36 hours. Portable ch est x-ray dated 01/28/2018 showed mild pulmonary vascular prominence. CT of the brain without contra st dated 01/28/2018 showed no acute intracranial process. Portable chest x-ray dated 01/30/2018 show ed bilateral hilar opacities. CT angiogram of the chest dated 01/30/2018 showed no evidence for pulm onary embolus. Consolidation of the right lung base compatible with pneumonia. Abdominal ultrasound dated 01/31/2018 showed a limited exam with hepatic steatosis with hepatomegaly. HOSPITAL COURSE: The patient was initially admitted after presenting with shortness of breath, alter ed mental status and dysarthria. The patient underwent extensive evaluation including neuro imaging showing no acute intracranial process. The patient likely with metabolic encephalopathy and underlyi ng infectious process discovered to be right lower lobe pneumonia. The patient was placed on broad s pectrum IV antibiotic therapy and monitored for clinical response. The patient was evaluated by the Pulmonology/Critical Care service with recommendations to continue IV antibiotic therapy and general pulmonary supportive measures. The patient was noted with intermittent tachypnea and hypoxemia requi ring short course of BiPAP noninvasive mechanical ventilation. The patient transitioned to room air, maintaining O2 saturations in the mid 90% range after treatment for pneumonia. The patient received bronchodilator therapy and pulmonary supportive care. The patient was also noted with rhabdomyolysi s, likely multifactorial with a component of likely statin therapy. The patient was held on all stat in agents with IV fluids and serial monitoring of total CK level showing improved values and decreasi ng by the time of discharge. Overall, patient did remain clinically stable through the remainder of the hospital course, tolerating regular oral intake, ambulating without assistance or difficulty and voiding appropriately. Of exam, the patient's time of discharge and discussed followup instructions, at which patient verbalized understanding and agreement. The patient ready for discharge on 018. DISCHARGE MEDICATIONS: 1. Omnicef 300 mg 1 tab p.o. b.i.d. x7 days. 2. N-acetylcysteine 600 mg p.o. daily. 3. Atenolol 50 mg p.o. daily. 4. Lopid 600 mg p.o. daily. 5. Lactobacillus 1 capsule p.o. daily. 6. Multivitamin 1 tab p.o. daily. 7. Pravachol 40 mg p.o. at bedtime. FOLLOWUP: The patient will follow up with his primary care provider, Dr. Claire Cruz within 7 days of discharge. CONDITION ON DISCHARGE: Stable. ACTIVITY: Ad benita. DIET: Heart healthy. CODE STATUS: FULL. DISPOSITION: Home on 02/02/2018. Total time preparing and coordinating discharge 33 minutes.
--- NOTE | 2018-02-03 11:46 | EKG ---
Test Reason : SOB Blood Pressure : / mmHG Vent. Rate : 102 BPM Atrial Rate : 102 BPM P-R Int : 000 ms QRS Dur : 082 ms QT Int : 340 ms P-R-T Axes : 000 -25 017 degrees QTc Int : 443 ms Sinus tachycardia with Premature atrial complexes Low voltage QRS Nonspecific T wave abnormality Abnormal ECG Confirmed by LUZ THOMPSON, NORBERT ([id number]), multimedia editor COCO DOUGLASS ([id number]) on 02/03/2018 11:46:18 AM Referred By: Confirmed By:NORBERT ESCOBAR MD
--- NOTE | 2018-02-05 13:21 | PQF ---
GLYNN FRANCOKATHERINE DO [id number] [facility] [id number] CLINICAL DOCUMENTATION CLARIFICATION FORM: POST DISCHARGE Addendum to original discharge summary date: ____ Late entry note date: __ Your assistance is needed to assign the appropriate diagnosis code regarding SIRS. Documentation within the H&P inidcates "severe Sepsis".. However, d/c summary indicate Systemic inflammatory response (SIRS). Please confirm the appropriate term/diagnosis. Please exercise your independent, professional judgment in responding to the clarification form. Clinical indicators are provided on the bottom of this form for your review Please check appropriate box(es): [ ] Severe sepsis with acute organ dysfunction of: (Examples: respiratory failure, encephalopathy, acute kidney failure, other) [ ] SIRS due to non-infectious process (please specify etiology) (NOT DUE TO PNEUMONIA) [ ] Localized infection without sepsis [ ] Other diagnosis [ x ] Unable to determine In addition, please specify: Present on Admission (POA): [ ] Yes [ ] No [ x ] Unable to determine For continuity of documentation, please document condition throughout progress notes and discharge summary. Thank You. CLINICAL INDICATORS - SIGNS / SYMPTOMS / LABS Altered mental status Acute renal failure WBC count (>12,000/mm^4 or <4000/mm^3 or 10% neuts, 10% bands) RISK FACTORS Pneumonia, Diabetes Surgery / surgical instrumentation / trauma Ruptured/perforated bowel, ruptured appendix Immunosuppression Advancing Age TREATMENTS: Initiation Sepsis Protocol antibiotic IV antibiotics - (This form is maintained as a part of the permanent medical record) 2014 [employer]. All Rights Reserved [email or web address] [email or web address] [phone] [email or web address]
== END 2018-02-02 15:05 | disposition home or self-care (01) | DRG 193 ==
LOC: ERS 15:19 → 2SE 21:28 → IMCU/EMU 23:30 → T4-B 01-30 16:18 → IMCU/EMU 01-31 02:32 → T4-A 02-01 10:24
PROVIDERS: ADMIT Family Medicine; ATTEND Family Medicine
PROC: 5A09357 Assistance with Respiratory Ventilation, Less than 24 Consecutive Hours, Continuous Positive Airway Pressure (ICD-10-PCS; principal; 2018-01-31)
DX: J15.9 Unspecified bacterial pneumonia (principal); G93.41 Metabolic encephalopathy; J96.01 Acute respiratory failure with hypoxia; F84.0 Autistic disorder; M62.82 Rhabdomyolysis; N17.9 Acute kidney failure, unspecified; E87.1 Hypo-osmolality and hyponatremia; E87.3 Alkalosis; I95.9 Hypotension, unspecified; D69.59 Other secondary thrombocytopenia; J20.9 Acute bronchitis, unspecified; R41.83 Borderline intellectual functioning; R47.81 Slurred speech; I49.3 Ventricular premature depolarization; I10 Essential (primary) hypertension; E11.9 Type 2 diabetes mellitus without complications; E86.0 Dehydration; F41.9 Anxiety disorder, unspecified; F32.9 Major depressive disorder, single episode, unspecified; J45.909 Unspecified asthma, uncomplicated; K76.0 Fatty (change of) liver, not elsewhere classified; R41.0 Disorientation, unspecified; Z79.899 Other long term (current) drug therapy; Z79.84 Long term (current) use of oral hypoglycemic drugs
CPT/HCPCS: 36415; 36416; 70450; 71045; 71046; 71275; 76700; 80048; 80053; 80074; 80202; 81001; 82550; 82553; 82805; 83605; 83690; 83735; 83880; 84484; 85007; 85025; 85027; 87040; 87086; 93005; 94640; 94660; 94760; 96361; 96365; 96375; A4216; G8978-GP-CK; G8979-GP-CI; G8987-GO-CI; G8988-GO-CI; G8989-GO-CI; G8996-GN-CH; G8997-GN-CH; J0456; J0692; J0744; J1100; J1940; J1956; J3370; J3475; J3480; J7050; J7611; J7620; S0028

== ENCOUNTER 2018-03-06 13:41 | Outpatient (CLI) | payer MEDICARE ==
[~2018-03-06 13:41] MED LIST: ISOVUE-370 76%-LOCM 1 ML ONE
== END 2018-03-06 13:42 | disposition home or self-care (01) ==
LOC: BICCT 13:41
PROVIDERS: ATTEND Obstetrics & Gynecology
DX: R93.8 Abnormal findings on diagnostic imaging of other specified body structures (principal); K80.20 Calculus of gallbladder without cholecystitis without obstruction
CPT/HCPCS: 71260

== ENCOUNTER 2018-09-26 09:27 | Outpatient (CLI) | payer MEDICARE ==
[2018-09-26] MEDS ORDERED: ISOVUE-370 76%-LOCM 1 ML ONE (10:10)
--- NOTE | 2018-09-26 11:12 | CT ---
CT THORAX WITH IV CONTRAST: INDICATIONS: Follow-up examination for pneumonia. COMPARISON: 03/06/2018 FINDINGS: There is linear density seen within the posteromedial aspect of the right lower lobe, which may refle ct scarring or areas of persistent subsegmental atelectasis. No consolidation is evident to suggest residual pneumonia. There are mild perihilar ground glass opacities, which are nonspecific. There is subsegmental volume loss within portions of the lingula, as well as portions of the peripheral right lower lobe. No enlarged lymph nodes are evident. There is prominent fatty infiltration of the liver. There is a gallstone present within the gallbladder neck. Adrenal glands, pancreas, and spleen appear within n ormal limits. No acute osseous abnormality is evident. There is scattered degenerative and osteoarthritic change. IMPRESSION: 1. Resolution of previously seen right lower lobe pneumonia. Mild suspected linear scarring versus atelectasis is present within the right lower lobe. 2. Nonspecific mild perihilar ground glass opacities, which may be related to subsegmental volume lo ss; however, mild edema or pneumonitis is not excluded. Recommend correlation with the patient's cli nical examination. 3. Prominent fatty liver with cholelithiasis. POS: [facility]
== END 2018-09-26 09:28 | disposition home or self-care (01) ==
LOC: BICCT 09:27
PROVIDERS: ATTEND Obstetrics & Gynecology
DX: R93.89 Abnormal findings on diagnostic imaging of other specified body structures (principal); K76.0 Fatty (change of) liver, not elsewhere classified; K80.20 Calculus of gallbladder without cholecystitis without obstruction
CPT/HCPCS: 71260; Q9966